=== PATIENT | male | born 1980 | race Caucasian/White ===

== ENCOUNTER 2023-03-21 17:45 | Emergency (ER) | payer OTHER ==
[~2023-03-21] VITALS: Ht 177.8 cm; Wt 90.7 kg
[2023-03-21] MEDS ORDERED: diphenhydrAMINE 50 MG/1 ML VIAL IVP ONE (18:45)
[2023-03-21] MEDS ORDERED: PROCHLORPERAZINE EDISYLATE 10 MG/2 ML VIAL IV ONE (18:45)
[2023-03-21] MEDS ORDERED: IV NORMAL SALINE 1000 ML BAG IV ONE (18:45)
[2023-03-21] MEDS ORDERED: ACETAMINOPHEN ES 500 MG TABLET PO ONE (18:45)
[2023-03-21] MEDS ORDERED: ACETAMINOPHEN ES 500 MG TABLET ONE (18:48)
[2023-03-21] MEDS ORDERED: diphenhydrAMINE 50 MG/1 ML VIAL ONE (18:48)
[2023-03-21] MEDS ORDERED: PROCHLORPERAZINE EDISYLATE 10 MG/2 ML VIAL ONE (18:48)
[2023-03-21 20:28] VITALS: BP 124/75; TEMP 98.5; O2SAT 99
== END 2023-03-21 20:29 | disposition home or self-care (01) ==
LOC: ER 17:50
DX: R51.9 Headache, unspecified (principal)
CPT/HCPCS: 99285; 96374; 70450; 96361; 96375; J1200; J0780; J7040; A4606; A4663; A9150